=== PATIENT | male | born 1995 | race Caucasian/White ===

== ENCOUNTER 2016-12-02 23:22 | Emergency (ER) | payer OTHER ==
[~2016-12-02] VITALS: Ht 180.3 cm; Wt 58.2 kg
[2016-12-02 23:43] VITALS: TEMP 37.9; Ht 180.3 cm; Wt 58.2 kg
[2016-12-03] MEDS ORDERED: XYLOCAINE 1%/SOD BICARB 20 ML VIAL INFIL ONE (00:15)
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
[2016-12-03 00:38] VITALS: BP 119/85; PULSE 90; O2SAT 94
== END 2016-12-03 00:45 | disposition home or self-care (01) ==
LOC: C.EDB 23:23 → C.EDC 12-03 00:45
DX: S01.511A Laceration without foreign body of lip, initial encounter (principal); V43.52XA Car driver injured in collision with other type car in traffic accident, initial encounter; J45.909 Unspecified asthma, uncomplicated